=== PATIENT | female | born 1940 | race Caucasian/White ===

== ENCOUNTER 2016-09-14 15:54 | Emergency (ER) | payer MEDICARE, OTHER ==
[~2016-09-14] VITALS: Ht 157.5 cm; Wt 40.0 kg
[2016-09-14 16:32] VITALS: BP 173/72; PULSE 69; RESP 15; O2SAT 99
--- NOTE | 2016-09-14 16:54 | ED.REPORT ---
HPI-Chest Pain 40 and Over Date of Service September 14, 2016 ED Provider: Karthik Welch MD The patient is a 76 year old female with history of paroxysmal atrial fibrillation, who was brought to the emergency department by EMS for an episode of atrial fibrillation with RVR. The patient was at home when the episode began around [id number]. She waited 5 minutes before she called medics. She had an episode yesterday that lasted for 15 minutes and she also experienced nausea, lightheadedness and an episode of diarrhea. The patient reports she has episodes almost daily. The episodes today and yesterday were more severe compared to previous. She is normally able to resolve the rapid rate with lying on her left side, relaxing, and breathing slow. Today she was not able to improve her symptoms and also noticed intermittent brief periods of sharp substernal chest pain. She denies increased shortness of breath, persistent chest pain or extremity swelling. The patient smokes 2 PPD and has been smoking for over 60 years. She is not on any blood thinners or rate controlling medication. Nursing Notes Stated Complaint: ARTHYMIA Chief Complaint: Dysrhythmia/Cardiac Nursing Notes Reviewed: Yes Allergies: Coded Allergies: Diazepam (Verified Allergy, Severe, 03/04/09) Meperidine (Verified Allergy, Severe, 03/04/09) Penicillins (Verified Allergy, Severe, 03/04/09) General Time Seen by MD: 16:53 Chief Complaint Other (a fib with RVR) Hx Obtained From: Patient, EMS Arrived By: Ambulance Sudden in Onset?: Yes Onset Occurred: 1 - 4 hours ago Symptom Duration: 1 - 15 minutes Location: : Substernal Quality: Sharp Severity: Current: No pain currently Severity: Maximum: Moderate Recent Healthcare: No recent doctor visit, No recent hospitalization Similar Sx Previous: Yes Past Medical History Past Medical History Paroxysmal atrial fibrillation Family History Noncontributory Smoking History Current Every Day Smoker (2 PPD) Social History Other Social History: Local resident Ambulatory Status Independent Review of Systems Respiratory: Denies: Shortness of breath Cardiovascular: Reports: Chest pain, Palpitations GI: Reports: Diarrhea, Nausea Musculoskeletal: Denies: Extremity swelling Neurologic: Reports: Lightheaded Complete sys rev & neg: except as marked. Physical Exam Initial Vital Signs Vital Signs (First) Date Time Temp Pulse Resp B/P Pulse Ox O2 Delivery O2 Flow Rate FiO2 09/14/16 16:32 69 15 173/72 99 Room Air 09/14/16 17:28 36.6 Initial VS: Reviewed Head / Eyes: Atraumatic, Normocephalic, PERRL ENT: Mucous membranes moist, Conjunctiva normal, No scleral icterus Neck: Supple, Non-tender, Full range of motion Lymphatic: No lymphadenopathy Extremities: Vascular intact, Neuro intact, No swelling, No tenderness Skin: Warm, Dry, No cyanosis Neurologic: Alert, Oriented, Nonfocal Psychiatric: Mood/affect normal, Behavior normal, Normal thought content General/Constitutional: Awake, Alert, No acute distress, Well appearing Respiratory / Chest: Atraumatic, Breath sounds NL, Breath sounds = bilat, No respiratory distress, No rales, No rhonchi, No wheezing, No stridor, No chest tenderness Cardiovascular: Heart rate NL, Regular rhythm, Heart sounds NL, No gallop, No murmurs, No rubs, Peripheral circulation NL, Pulses = bilaterally, No gross BP differential Abdomen: Atraumatic, Soft, Non-tender, McBurney's non-tender, No guarding, No rebound, BS normoactive, No distention, No hernia, No palpable mass Interpretation & Diagnostics Lab Results Interpretation Result Diagram: 09/14/16 1710 09/14/16 1710 Test 09/14/16 17:10 White Blood Count 7.7th/mm3 (3.8-10.1) Red Blood Count 3.48mil/mm3 (3.90-5.20) Hemoglobin 11.7g/dL (12.0-15.6) Hematocrit 33.7% (35.0-46.0) Mean Corpuscular Volume 96.8fL (81-100) Mean Corpuscular Hemoglobin 33.6pg (27.0-35.0) Mean Corpuscular Hemoglobin Concent 34.7% (32.0-37.0) Red Cell Distribution Width 13.5% (12.3-15.4) Platelet Count 292bil/L (150-400) Neutrophils (%) (Auto) 46.9% (40-74) Lymphocytes (%) (Auto) 42.0% (14-46) Monocytes (%) (Auto) 8.8% (4-12) Eosinophils (%) (Auto) 1.7% (0-5) Basophils (%) (Auto) 0.5% (0-3) Sodium Level 137mEq/L (134-144) Potassium Level 3.9mEq/L (3.5-5.2) Chloride Level 99mEq/L (97-108) Carbon Dioxide Level 23mmol/L (18-29) Blood Urea Nitrogen 7mg/dL (8-27) Creatinine 0.57mg/dL (0.57-1.00) Estimat Glomerular Filtration Rate 148mL/min (>59) Glucose Level 91mg/dL (60-99) Calcium Level 8.9mg/dL (8.5-10.1) Total Bilirubin 0.2mg/dL (0.0-1.2) Aspartate Amino Transf (AST/SGOT) 21U/L (0-50) Alanine Aminotransferase (ALT/SGPT) 8U/L (0-32) Alkaline Phosphatase 48U/L (25-165) Troponin T < 0.010ug/L (0.0-0.011) Total Protein 6.3g/dL (6.4-8.4) Albumin 3.8g/dL (3.4-5.0) ECG Interpretation ECG Interpretation: Sinus rhythm with a rate of 63 Time: 17:19 Interpreted by: ED physician Re-Eval/Medical Decision Med Decision/Clinical Course 76-year-old female history of paroxysmal atrial fibrillation presenting complaining of atrial fibrillation with RVR. This reported resolved from the medics showed up without intervention. On arrival she was in sinus rhythm with regular rate. Her labs are normal. Her troponins are negative. She is asymptomatic throughout her time in her care. She was given a nicotine patch. She was discharged home in good conditions plans continue her aspirin and follow up with her primary doctor this week. Source of Hx: Old records, EMS Time of Eval: 17:43 Re-Evaluation/Progress Note: Discussed plan for discharge. All questions were addressed. Counseled Regarding: Diagnosis, Lab results, Need for follow-up, When/why to return to ED Discharge & Departure Primary Impression: Atrial fibrillation with rapid ventricular response Additional Impression: Nicotine dependence Nicotine product type: cigarettes Substance use status: uncomplicated Qualified Code: F17.210 - Nicotine dependence, cigarettes, uncomplicated Disposition: Home Discharge Condition All VS Reviewed: Yes Condition: Stable Patient Instructions: Atrial Fibrillation (GEN) Additional Instructions: Thank you for entrusting us with your care today. Your heart rate and rhythm are back to normal. You should followup with Dr. Driscoll in the next few days for re-evaluation. Return to the emergency department if you develop recurrent symptoms that do not resolve, palpitations, chest pain, shortness of breath, or any other new or worsening symptoms. Referrals: Leander Driscoll Attestation Portions of this note were transcribed by Harini Hernandez. I, Dr. Welch personally performed the history, physical exam and medical decision-making; I reviewed and confirmed the accuracy of the information in the transcribed note. Signed by: Jayleen Guadalupe, 09/14/2016 at 1800. copies to: Leander Driscoll Ben M MD September 14, 2016 16:54 Harini Hernandez September 14, 2016 17:02
[2016-09-14 17:15] LABS: BASOPHILS % (AUTO) 0.5 % (0-3); EOSINOPHILS % (AUTO) 1.7 % (0-5); MONOCYTES % (AUTO) 8.8 % (4-12); Mean Corpuscular Hemoglobin 33.6 pg (27.0-35.0); Mean Corpuscular Volume 96.8 fL (81-100); NEUTROPHILS % (AUTO) 46.9 % (40-74); Platelet Count 292 bil/L (150-400)
[2016-09-14 17:28] VITALS: BP 153/63; PULSE 75; RESP 17; O2SAT 100
[2016-09-14 17:56] LABS: TROPONIN T < 0.010 ug/L (0.0-0.011)
[2016-09-14 18:29] VITALS: BP 146/88; PULSE 78; RESP 18; O2SAT 98
[2016-09-14 18:37] VITALS: BP 146/88; PULSE 78; RESP 18; O2SAT 98
== END 2016-09-14 19:09 | disposition home or self-care (01) ==
LOC: EDUNIT# 15:54 → EDBD 15:54 → SED 15:54
DX: I48.91 Unspecified atrial fibrillation (principal); F17.210 Nicotine dependence, cigarettes, uncomplicated; I10 Essential (primary) hypertension; Z88.0 Allergy status to penicillin; Z88.5 Allergy status to narcotic agent

== ENCOUNTER 2016-11-22 16:40 | Emergency (ER) | payer MEDICARE, OTHER ==
[~2016-11-22] VITALS: Ht 157.5 cm; Wt 43.2 kg
[2016-11-22 16:48] VITALS: BP 135/71; PULSE 81; RESP 20; O2SAT 96
--- NOTE | 2016-11-22 18:02 | DRSVH ---
PROCEDURE: X-RAY RIGHT WRIST COMPLETE, MINIMUM THREE VIEWS ([id number]) INDICATIONS: wrist pain TECHNIQUE: 4 views of the wrist were acquired. COMPARISON: None. FINDINGS: Bones: Small focus of nondisplaced distal radial cortical lucency seen only on one view. No suspiciou s bony lesions. Scaphoid view: No visualized fracture. Soft tissues: No suspicious soft tissue calcifications. IMPRESSION: Nondisplaced radial cortical lucency seen only on one view. Nondisplaced fracture cannot be definitively excluded. Recommend correlation of point tenderness and short interval imaging follow up in 7-10 days as clinically indicated. Dictated by: Willa Manzanares M.D. on 11/22/2016 at 17:59 Approved by: Willa Manzanares M.D. on 11/22/2016 at 18:00
[2016-11-22] MEDS ORDERED: 0.9% Sodium Chloride 1,000 ML IV ONE (19:04)
[2016-11-22] MEDS ORDERED: Ondansetron 2 mg/mL 2 mL Inj IVPUSH PRN (19:05)
[2016-11-22] MEDS ORDERED: HYDROmorphone 0.5 mg/0.5 mL iSecure Syringe IVPUSH PRN (19:05)
--- NOTE | 2016-11-22 19:17 | ED.REPORT ---
HPI-General Illness Date of Service Nov 22, 2016 ED Provider: Jose Antonio Schwartz MD Pt is a 76 year old female who presents to the ED via EMS with concerns for a R wrist injury that occurred immediately prior to arrival. She reports that she fell off a ladder when she struck her arm on the deck and hit the back of her head. She states that her head only bothered her for ~20 minutes, but she only complains of musculoskeletal pain at this time. Pt reports no loss of consciousness or any other complaints. Pain is currently a 5/10, located primarily in her R hand and fingers, not really radiating, worse w/ movement, described as aching. No numbness or tingling. No other complaints at this time. Nursing Notes Stated Complaint: FALL Chief Complaint: Multiple Trauma/Fall Nursing Notes Reviewed: Yes Allergies: Coded Allergies: Diazepam (Verified Allergy, Severe, 03/04/09) Meperidine (Verified Allergy, Severe, 03/04/09) Penicillins (Verified Allergy, Severe, 03/04/09) Scheduled PRN Hydrocodone-Acetaminophen 5-325 mg (Hydrocodone-Acetaminophen 5-325 mg) 1 Each Tablet 1 TABLET PO Q4H PRN PRN For Pain General Time Seen by MD: 19:03 Chief Complaint Other (R hand injury) Hx Obtained From: Patient Arrived By: Ambulance Sudden in Onset?: Yes Onset Occurred: Just prior to arrival Symptom Duration: Waxes and wanes Caused by: Accidental Location: : Hand right Quality: Painful Severity: Current: Mild Severity: Maximum: Moderate Similar Sx Previous: Yes Past Medical History Past Medical History Paroxysmal atrial fibrillation Family History Noncontributory Smoking History Current Every Day Smoker Social History Other Social History: Local resident Ambulatory Status Independent Review of Systems Full Review of Systems Constitutional: Denies: Chills, Fever, Malaise, Weakness - generalized Respiratory: Denies: Non-productive cough, Shortness of breath, Wheezing Cardiovascular: Denies: Chest pain, Syncope GI: Denies: Abdominal pain, Constipation, Diarrhea, Nausea, Vomiting Musculoskeletal: Denies: Back pain, Neck pain Skin: Denies Diaphoresis Neurologic: Denies: Change LOC, Syncope, Weakness Complete sys rev & neg: except as marked. Physical Exam General: Airway patent, GCS of 15 --- eyes (4), verbal (5), motor (6) HEENT: Right eye normal with pupils 4-3 and briskly reactive Left eye normal with pupils 4-3 and briskly reactive Midface stable, no malocclusion No nasal septal hematoma No obvious external signs of trauma to the scalp appreciated Neck: nontender, trachea midline Lungs: Clear to auscultation bilaterally, normal work of breathing Chest: Stable without tenderness, no crepitus Cardiac: Regular rate and rhythm Abdomen: Normal, non-tender, non-distended. Back: No bruising, tenderness, or step-offs Rectal: deferred Pelvis: Stable Skin: Warm and well perfused Extremities: Left upper extremity grossly normal, no deformity. Right upper extremity in a splint with significant ecchymosis to her ring middle and index finger with a 4 cm skin tear to the dorsum of her right hand in between the thumb and index finders. In tact sensation throughout Able to fire all the muscles in her hand No snuff box tenderness Able to abduct and adduct her thumb Right lower extremity grossly normal, no deformity. Left lower extremity grossly normal, no deformity. Pulses: Palpable to bilateral upper and lower extremities Neuro: Motor and sensory exams grossly within normal limits; patient localizes to pain. Vital Signs Vital Signs Date Time Temp Pulse Resp B/P Pulse Ox O2 Delivery O2 Flow Rate FiO2 11/22/16 22:12 37.1 78 18 124/69 97 Room Air 11/22/16 21:00 78 18 124/69 97 Room Air 11/22/16 16:48 37.1 81 20 135/71 96 Room Air Initial VS: Reviewed Interpretation & Diagnostics X-Ray Chest Interpretation Chest Xray Interpretation: IMPRESSION: No acute pulmonary process. Dictated by: Willa Manzanares M.D. on 11/22/2016 at 20:10 Interpretation / Wet Read by: Interpret - Radiologist X-Ray Interpretation Xray Interpretation: IMPRESSION: Nondisplaced radial cortical lucency seen only on one view. Nondisplaced fracture cannot be definitively excluded. Recommend correlation of point tenderness and short interval imaging followup in 7-10 days as clinically indicated. Dictated by: Willa Manzanares M.D. on 11/22/2016 at 17:59 X-Ray Ordered: Wrist right Interpretation / Wet Read by: Interpret - Radiologist Xray Interpretation: IMPRESSION: No visualized acute fracture or dislocation. However, if clinical concern and/or pain persist, short interval imaging followup in 7-10 days is recommended, as occult injury cannot be definitively excluded. Dictated by: Willa Manzanares M.D. on 11/22/2016 at 20:11 X-Ray Ordered: Pelvis Interpretation / Wet Read by: Interpret - Radiologist Xray Interpretation: IMPRESSION: Fractures at the base of the third and fourth metacarpals. Dictated by: Willa Manzanares M.D. on 11/22/2016 at 20:12 X-Ray Ordered: Hand right CT Head Interpretation IMPRESSION: 1. No acute intracranial process. 2. Moderate atrophy and chronic microvascular ischemic changes. Dictated by: Willa Manzanares M.D. on 11/22/2016 at 19:52 Interpretation / Wet Read by: Interpret - Radiologist CT C-Spine Interpretation IMPRESSION: No visualized fracture. Dictated by: Willa Manzanares M.D. on 11/22/2016 at 20:01 Interpretation / Wet Read by: Interpret - Radiologist Procedures Splint Application - Fx Mgt Procedure Performed by: ED physician Precise Anatomic Location: Right forearm and hand Type of Immobilization: Ulnar gutter Definitive Fracture Care: Splint, Performed by pa Post-Procedure / Complications: Cap refill normal, Post splint vascular nl, Condition improved, Tolerated procedure well, Patient stable Splint Post-Application Eval Extremity Condition: Cap refill < 2 sec, Distal sensation intact, Distal motor Intact, No compartment syndrome Re-Eval/Medical Decision Med Decision/Clinical Course 76-year-old female presenting to the ED after a fall from a ladder earlier today. She states that she was only about a foot off the ground when she actually fell. Did not hit her head, however no loss of consciousness. Not on blood thinners at this time. No cervical tenderness. Clear mechanical etiology ; no syncopal symptoms. Primary and secondary survey as per above. No chest wall tenderness, no abdominal pain or tenderness; no need for further imaging of the chest, abdomen, or pelvis at this time. CT scan of the patient's head and C-spine negative for any acute abnormalities. She does have fractures at the base of the third and fourth metacarpals, as well as a nondisplaced radial cortical lucency concerning for possible distal radius fracture. Patient placed in an ulnar gutter splint after discussion with orthopedics, as per above. Neurovascularly intact both before and after the procedure. Tolerated well. Plan discharge home with very careful return precautions, follow-up with orthopedics this week. Patient agreeable to the plan as stated, no further questions. Source of Hx: Old records Time of Eval: 21:26 Re-Evaluation/Progress Note: Pt is rechecked and informed of her imaging results and the plan to discharge her at this time. She understands and agrees, all questions are addressed. Consultation : Referral / Consult Name: Jossue Rooney MD Consulted With: Orthopedic Call Returned at: 20:55 Field Gauger: Will see in office, Agrees with eval, Agrees with plan Counseled Regarding: Diagnosis, Lab results, Need for follow-up, When/why to return to ED Discharge & Departure Primary Impression: Finger fracture Encounter type: initial encounter Finger: middle finger Fracture type: closed Phalanx: proximal Fracture alignment: displaced Laterality: right Qualified Code: S62.612A - Displaced fracture of proximal phalanx of right middle finger, initial encounter for closed fracture Additional Impressions: Finger fracture, right Encounter type: initial encounter Fracture type: closed Qualified Code: S62.609A - Fracture of unspecified phalanx of unspecified finger, initial encounter for closed fracture Distal radius fracture, right Encounter type: initial encounter Fracture type: closed Fracture morphology : unspecified fracture morphology Qualified Code: S52.501A - Unspecified fracture of the lower end of right radius, initial encounter for closed fracture Disposition: Home Discharge Condition All VS Reviewed: Yes Condition: Stable Patient Instructions: Finger Fracture (ED) Additional Instructions: Continue to wear to splint until you are able to follow up with Orthopedics, Dr. Rooney. She will evaluate your fracture in office tomorrow. Take the pain medication as prescribed, use this sparingly. Return to the emergency department with any numbness or tingling in the effected extremity, fevers or any other worsening symptoms. Referrals: Leander Driscoll DO (PCP) Jossue Rooney MD Attestation Portions of this note were transcribed by Lynda Gurrola. IDr. Schwartz personally performed the history, physical exam and medical decision-making; I reviewed and confirmed the accuracy of the information in the transcribed note. Signed by: Jayleen Young, 11/22/2016 21:26 copies to: Leander Driscoll DO; Jossue Rooney MD, William B MD Nov 22, 2016 19:17 ROSITA GURROLA Nov 22, 2016 19:22
--- NOTE | 2016-11-22 19:54 | DRSVH ---
PROCEDURE: CT BRAIN WITHOUT CONTRAST ([id number]) INDICATIONS: fall off ladder; eval intracranial bleed, other ab TECHNIQUE: Noncontrast 4.5 mm thick angled axial sections acquired from the foramen magnum to the vertex, with c oronal reformats. COMPARISON: None. FINDINGS: Image quality: Excellent. CSF spaces: Basal cisterns are patent. No extra-axial fluid collections. The ventricles are symmet misty in size and shape. Brain: No intracranial bleeds or masses. There is cerebral volume loss for age, with resultant vent ricular and sulcal prominence. There are periventricular and deep white matter chronic small vessel ischemic changes. There is intracranial internal carotid artery atherosclerosis. Skull and face: Calvarium and visualized facial bones appear intact, without suspicious lesions. Sinuses: Visualized sinuses and mastoids are clear. IMPRESSION: 1. No acute intracranial process. 2. Moderate atrophy and chronic microvascular ischemic changes. Dictated by: Willa Manzanares M.D. on 11/22/2016 at 19:52 Approved by: Willa Manaznares M.D. on 11/22/2016 at 19:53
--- NOTE | 2016-11-22 20:04 | DRSVH ---
PROCEDURE: CT CERVICAL SPINE WITHOUT CONTRAST ([id number]) INDICATIONS: fall off ladder; eval intracranial bleed, other ab TECHNIQUE: Noncontrast 3 mm thick sections acquired from the skull base to the T4 level. Sagittal and coronal r eformats were then constructed. For radiation dose reduction, the following was used: automated exp osure control, adjustment of mA and/or kV according to patient size. COMPARISON: None. FINDINGS: Image quality: Excellent. Bones: No fractures or dislocations. Visualized superior ribs are intact. Soft tissues: Prevertebral soft tissues are normal in thickness. No paravertebral hematomas. No ap ical pneumothoraces. IMPRESSION: No visualized fracture. Dictated by: Willa Manzanares M.D. on 11/22/2016 at 20:01 Approved by: Willa Manzanares M.D. on 11/22/2016 at 20:03
--- NOTE | 2016-11-22 20:12 | DRSVH ---
PROCEDURE: X-RAY CHEST ONE VIEW, PORTABLE ([id number]) INDICATIONS: fall off ladder; eval fx, other abnl TECHNIQUE: One view of the chest was acquired. COMPARISON: [facility], , CHEST 1VW (PORTABLE), 09/22/2007, 17:29. FINDINGS: Surgical changes and devices: None. Lungs and pleura: No pleural effusions or pneumothorax. Lungs are clear. Hyperinflation suggestive of COPD. Mediastinum: Mediastinal contours appear normal. Heart size is normal. Bones and chest wall: No suspicious bony lesions. Overlying soft tissues appear unremarkable. IMPRESSION: No acute pulmonary process. Dictated by: Willa Manzanares M.D. on 11/22/2016 at 20:10 Approved by: Willa Manzanares M.D. on 11/22/2016 at 20:10
--- NOTE | 2016-11-22 20:13 | DRSVH ---
PROCEDURE: X-RAY PELVIS, ONE OR TWO VIEWS ([id number]) INDICATIONS: fall off ladder; eval fx, other abnl TECHNIQUE: One view(s) of the pelvis acquired. COMPARISON: None. FINDINGS: Bones: No fractures or dislocations. No suspicious bony lesions. Soft tissues: Visualized bowel gas pattern is normal. No suspicious soft tissue calcifications. IMPRESSION: No visualized acute fracture or dislocation. However, if clinical concern and/or pain pe rsist, short interval imaging followup in 7-10 days is recommended, as occult injury cannot be defini tively excluded. Dictated by: Willa Manzanares M.D. on 11/22/2016 at 20:11 Approved by: Willa Manzanares M.D. on 11/22/2016 at 20:12
--- NOTE | 2016-11-22 20:17 | DRSVH ---
PROCEDURE: X-RAY RIGHT HAND, MINIMUM THREE VIEWS ([id number]) INDICATIONS: fall from ladder, poss fx of distal radius TECHNIQUE: 3 views of the hand(s) acquired. COMPARISON: None. FINDINGS: Bones: There is a dislocated fracture at the base of the fourth metacarpal. There is a nondisplaced f racture at the base of the third metacarpal. There appears to be no intra-articular extension. Soft tissues: No suspicious soft tissue calcifications. IMPRESSION: Fractures at the base of the third and fourth metacarpals. Dictated by: Willa Manzanares M.D. on 11/22/2016 at 20:12 Approved by: Willa Manzanares M.D. on 11/22/2016 at 20:16
[2016-11-22] MEDS ORDERED: oxyCODONE-Acetamin 5-325 mg Tablet PO ONE (20:50)
[2016-11-22 21:00] VITALS: BP 124/69; PULSE 78; RESP 18; O2SAT 97
[2016-11-22] MEDS ORDERED: HYDR-4003 PO (22:11)
[2016-11-22 22:12] VITALS: BP 124/69; PULSE 78; RESP 18; O2SAT 97
== END 2016-11-22 22:13 | disposition home or self-care (01) ==
LOC: SED 16:40
DX: S62.612A Displaced fracture of proximal phalanx of right middle finger, initial encounter for closed fracture (principal); S62.614A Displaced fracture of proximal phalanx of right ring finger, initial encounter for closed fracture; S52.591A Other fractures of lower end of right radius, initial encounter for closed fracture; W11.XXXA Fall on and from ladder, initial encounter; Y93.89 Activity, other specified; Y92.89 Other specified places as the place of occurrence of the external cause; Y99.8 Other external cause status; I48.91 Unspecified atrial fibrillation; F17.200 Nicotine dependence, unspecified, uncomplicated; Z88.0 Allergy status to penicillin; Z88.1 Allergy status to other antibiotic agents